=== PATIENT | male | born 1945 | race Caucasian/White ===

== ENCOUNTER 2016-11-09 07:58 | Outpatient (CLI) | payer MEDICARE, BC, OTHER ==
[~2016-11-09 07:58] MED LIST: ASPIRIN 81M81 MG/TA2 PO; BENICAR40 MG PO; CARDIZEM 30MG T30 MG PO; CARDIZEM CD360 MG; HYGROTON 2525 MG/TAB PO; KLOR-CON 1010 MEQ PO
[2016-11-09 08:30] VITALS: BP 161/79; PULSE 65; TEMP 97.8
[2016-11-09] MEDS ORDERED: CARDURA4 MG PO (09:22)
[2016-11-09] MEDS ORDERED: PROCARDIA XL 3030 MG PO (09:23)
[2016-11-12 10:46] LABS: RENIN,PLASMA <0.6 ng/mL/h (())
== END 2016-11-09 13:23 | disposition home or self-care (01) ==
LOC: EUO 07:58
PROVIDERS: Internal Medicine
DX: E26.9 Hyperaldosteronism, unspecified (principal)
CPT/HCPCS: J7030

== ENCOUNTER → 2016-11-24 | Outpatient (CLI) | payer MEDICARE, BC, OTHER ==
[~2016-11-24] MED LIST changes: +CARDURA4 MG PO; +PROCARDIA XL 3030 MG PO
== END ==
LOC: COL.RAD 08:37
DX: E26.89 Other hyperaldosteronism (principal)
CPT/HCPCS: Q9967